=== PATIENT | female | born 1995 | race Caucasian/White ===

== ENCOUNTER 2016-12-27 08:28 | Emergency (ER) | payer MEDICAID ==
[~2016-12-27] VITALS: Ht 170.2 cm; Wt 58.2 kg
[~2016-12-27 08:28] MED LIST: birth control pills
[2016-12-27 08:30] VITALS: BP 103/69
[2016-12-27 08:55] LABS: HCG UR LOT HCG7030192
[2016-12-27 09:01] LABS: PATH.CAST-FLAG NOT PRESENT; SPERM-FLAG NOT PRESENT; SRC-FLAG NOT PRESENT; XTAL-FLAG NOT PRESENT; YLC-FLAG NOT PRESENT
[2016-12-27 09:05] LABS: HCG UR OBC PASS
== END 2016-12-27 09:25 | disposition home or self-care (01) ==
LOC: ED 09:15
DX: N39.0 Urinary tract infection, site not specified (principal); N30.00 Acute cystitis without hematuria; Z88.5 Allergy status to narcotic agent; Z91.040 Latex allergy status
CPT/HCPCS: 81001; 81025; 87077; 87086; 87186; 99284

== ENCOUNTER 2017-06-16 09:31 | Emergency (ER) | payer MEDICAID ==
[~2017-06-16] VITALS: Ht 170.2 cm; Wt 58.0 kg
[2017-06-16 09:32] VITALS: BP 115/81
== END 2017-06-16 11:43 | disposition home or self-care (01) ==
LOC: ED 11:00
DX: S92.351A Displaced fracture of fifth metatarsal bone, right foot, initial encounter for closed fracture (principal); W10.9XXA Fall (on) (from) unspecified stairs and steps, initial encounter; Y93.89 Activity, other specified; Y99.8 Other external cause status; Y92.009 Unspecified place in unspecified non-institutional (private) residence as the place of occurrence of the external cause
CPT/HCPCS: 29515; 99284

== ENCOUNTER 2018-11-08 09:50 | Emergency (ER) | payer MEDICAID ==
[~2018-11-08] VITALS: Ht 170.2 cm; Wt 57.0 kg
--- NOTE | 2018-11-08 10:16 | NUR ---
Patient to room gown on; on monitor; vss. Patient reports feeling ill x2 days. Recent trip to was informed she might have hantavirus. Patient reports being able to keep food and water down, but remains nauseaus. Awaiting orders.
[2018-11-08] MEDS ORDERED: KETOROLAC 30 MG/1 ML IM ONE (11:00)
--- NOTE | 2018-11-08 11:22 | NUR ---
RN to bedside; given clean catch instructions; patient verbalized understanding. Patient back to room ambulated well. UA sent. Awaiting results.
[2018-11-08 11:35] LABS: MEAN CORPUSCULAR HEMOGLOBIN 24.8 pg (27.0-34.8); MEAN CORPUSCULAR HGB CONC 31.7 g/dL (32.4-35.8); MEAN CORPUSCULAR VOLUME 78.1 fL (80-100); MEAN PLATELET VOLUME 8.3 fL (7.4-10.4); PLATELET COUNT 243 x10^3/uL (130-400); RED BLOOD COUNT 4.63 x10^6/uL (3.82-5.3); RED CELL DISTRIBUTION WIDTH 16.7 % (9.6-15.2)
[2018-11-08 11:45] LABS: MICROSCOPIC NOT IND
[2018-11-08] MEDS ORDERED: KETOROLAC 30 MG/1 ML ONE (11:46)
[2018-11-08 11:47] LABS: ALBUMIN 3.7 g/dL (3.4-5.0); ANION GAP 2 mmol/L (5-15); CALCIUM 8.2 mg/dL (8.5-10.1); CHLORIDE 107 mmol/L (98-107)
[2018-11-08 11:54] LABS: ALANINE AMINOTRANSFERASE 21 U/L (12-78); ALKALINE PHOSPHATASE 69 U/L (45-117); BILIRUBIN,TOTAL 0.3 mg/dL (0.2-1.0); CREATININE 0.77 mg/dL (0.55-1.02); TOTAL PROTEIN 7.2 g/dL (6.4-8.2)
[2018-11-08 11:56] LABS: CULTURE INDICATED? NO
--- NOTE | 2018-11-08 12:08 | NUR ---
RN to bedside; field technician at bedside already. Patient transported to imaging.
[2018-11-08 12:25] LABS: BASOPHILS # (AUTO) 0.02 x10^3/uL (0-0.1); BASOPHILS % (AUTO) 1 % (0-1); EOSINOPHILS # (AUTO) 0.07 x10^3/uL (0-0.4); EOSINOPHILS % (AUTO) 3 % (1-7); LYMPHOCYTES # (AUTO) 0.82 x10^3/uL (1-3.4); LYMPHOCYTES % (AUTO) 37 % (22-44); MD SCAN; MONOCYTES % (AUTO) 18 % (2-9); NEUTROPHILS # (AUTO) 0.89 x10^3/uL (1.8-6.8); NEUTROPHILS % (AUTO) 40 % (42-75)
--- NOTE | 2018-11-08 12:36 | NUR ---
RN to bedside; patient resting comfortably; adjust hob. Awaiting orders.
[2018-11-08 13:31] VITALS: BP 96/62
== END 2018-11-08 13:32 | disposition home or self-care (01) ==
LOC: ED 11:20
DX: B34.9 Viral infection, unspecified (principal); D72.819 Decreased white blood cell count, unspecified
CPT/HCPCS: 36415; 71046; 80053; 81003; 84703; 85025; 96372; 99284; J1885

== ENCOUNTER 2019-04-09 15:39 | Emergency (ER) | payer MEDICAID ==
[~2019-04-09] VITALS: Ht 172.7 cm; Wt 60.0 kg
--- NOTE | 2019-04-09 16:23 | NUR ---
PT REPORTS RIGHT HIP PAIN AND LOW BACK PAIN AFTER A GLF ON 03/27/2019. VS STABLE. PT SEEN BY DR MOSQUERA. NO ACUTE DISRESS NOTED. CALL LIGHT IN PLACE. WILL CONINUE TO MONITOR.
[2019-04-09] MEDS ORDERED: FENTANYL PF 100 MCG/2ML IVPush ONE (16:30)
[2019-04-09] MEDS ORDERED: DIAZEPAM 5 MG/ML, 2ML IV ONE (16:30)
[2019-04-09] MEDS ORDERED: KETOROLAC 30 MG/1 ML IVPush ONE (16:30)
[2019-04-09] MEDS ORDERED: KETOROLAC 30 MG/1 ML ONE (16:39)
[2019-04-09] MEDS ORDERED: DIAZEPAM 5 MG/ML, 2ML ONE (16:39)
[2019-04-09] MEDS ORDERED: FENTANYL PF 100 MCG/2ML ONE ×2 (16:39→17:50)
--- NOTE | 2019-04-09 17:03 | NUR ---
PT REFUSED PAIN MEDS AT THIS TIME. PT IS AT CT.
--- NOTE | 2019-04-09 17:52 | NUR ---
DR MOSQUERA IN ROOM. PT REQUESTING PAIN MEDS.
[2019-04-09 18:37] VITALS: BP 100/68
== END 2019-04-09 18:40 ==
LOC: ED 17:17
DX: M46.1 Sacroiliitis, not elsewhere classified (principal); M25.571 Pain in right ankle and joints of right foot; M25.551 Pain in right hip
CPT/HCPCS: 72131; 72192; 96374; 96375; 99284; J1885; J3010; J3360

== ENCOUNTER 2019-06-05 21:31 | Emergency (ER) | payer MEDICAID ==
[~2019-06-05] VITALS: Ht 172.7 cm; Wt 62.0 kg
--- NOTE | 2019-06-05 21:55 | NUR ---
[facility] ([facility] [place]) REQ UPDATES OR PICKUP: [phone]
[2019-06-05 22:29] LABS: RAPID INFLUENZA A Negative (Negative); RAPID INFLUENZA B Negative (Negative)
[2019-06-05 22:31] VITALS: BP 112/77
== END 2019-06-05 23:57 | disposition home or self-care (01) ==
LOC: ED 22:05
DX: B34.9 Viral infection, unspecified (principal); Z20.828 Contact with and (suspected) exposure to other viral communicable diseases; J15.9 Unspecified bacterial pneumonia
CPT/HCPCS: 71045; 87400; 99284

== ENCOUNTER 2020-01-09 13:00 | Emergency (ER) | payer MEDICAID ==
[~2020-01-09] VITALS: Ht 172.7 cm; Wt 63.5 kg
[2020-01-09 13:04] VITALS: BP 118/61
--- NOTE | 2020-01-09 13:08 | NUR ---
UA CUP GIVEN.
[2020-01-09 14:15] LABS: HCG UR SG 1.014 (1.003-1.030)
[2020-01-09 14:18] LABS: MICROSCOPIC INDICATED
== END 2020-01-09 15:45 | disposition home or self-care (01) ==
LOC: ED 13:49
DX: N30.00 Acute cystitis without hematuria (principal)
CPT/HCPCS: 81001; 81025; 87077; 87086; 87147; 87186; 99283

== ENCOUNTER 2020-10-12 10:34 | Emergency (ER) | payer SELFPAY ==
[~2020-10-12] VITALS: Ht 172.7 cm; Wt 60.2 kg
--- NOTE | 2020-10-12 10:44 | NUR ---
ABEL RN: PT TOOK 800MG IBUPROFEN THIS AM
[2020-10-12] MEDS ORDERED: METHOCARBAMOL 750 MG TABLET ONE (11:12)
[2020-10-12] MEDS ORDERED: HYDROmorphone 2 MG/ML, 1ML ONE ×2 (11:12→12:07)
[2020-10-12] MEDS: HYDROmorphone 2 MG/ML, 1ML IVPush PRN ×2 (11:16→12:10)
--- NOTE | 2020-10-12 11:22 | NUR ---
pt placed on continuous spo2 monitoring. pain has improved to a 4/10. awaiting mri.
[2020-10-12] MEDS ORDERED: METHOCARBAMOL 750 MG TABLET PO ONE (11:30)
--- NOTE | 2020-10-12 11:34 | NUR ---
PT IN MRI VIA [facility].
[2020-10-12] MEDS ORDERED: DEXAMETHASONE 4 MG/ML, 1ML ONE (12:06)
--- NOTE | 2020-10-12 12:09 | NUR ---
pt back from MRI, pain has increased to 9/10. made aware.
--- NOTE | 2020-10-12 12:21 | NUR ---
PT REPORTS RELIEF FROM PAIN MEDICATION. PAIN HAS SUBSIDED TO A 4/10.
[2020-10-12] MEDS ORDERED: HYDROmorphone 2 MG/ML, 1ML IVPush PRN (12:30)
[2020-10-12] MEDS ORDERED: DEXAMETHASONE 4 MG/ML, 1ML IVPush ONE (12:30)
--- NOTE | 2020-10-12 12:53 | NUR ---
PT AMBULATORY INDEPENDENT OF THIS RN. PT STOPS EVERY FEW STEPS DUE TO INCREASE IN PAIN. UPON RETURN TO ROOM, PT REQUEST ASSISTANCE WITH GETTING LEGS/FEET BACK INTO BED. THIS RN PROVIDED ASSISTANCE LIFTING LEGS INTO GURNEY. PT SHAKY, CRYING. NOTIFIED MD OF PT STATUS.
[2020-10-12 13:39] VITALS: BP 120/64
--- NOTE | 2020-10-12 13:40 | NUR ---
PT'S PAIN WELL MANAGED AT TIME OF DC, 06/18. AMBULATORY C STEADY/SLOW GAIT. WHEELED TO CHECKOUT FOR COMFORT. VSS. PT'S MOTHER TO DRIVE HER HOME.
== END 2020-10-12 13:41 | disposition home or self-care (01) ==
LOC: ED 11:54
DX: M54.16 Radiculopathy, lumbar region (principal)
CPT/HCPCS: 72148; 96374; 96375; 99284; J1100; J1170

== ENCOUNTER 2020-11-05 08:51 | Observation (INO) | payer MEDICAID ==
[~2020-11-05] VITALS: Ht 172.7 cm; Wt 62.0 kg
[2020-11-05] MEDS ORDERED: DIAZEPAM 5 MG TABLET ONE (10:29)
[2020-11-05] MEDS ORDERED: HYDROmorphone 2 MG/ML, 1ML ONE (10:29)
[2020-11-05] MEDS ORDERED: DIAZEPAM 5 MG TABLET PO ONE (10:30)
[2020-11-05] MEDS: HYDROmorphone 2 MG/ML, 1ML IVPush PRN ×2 (10:39→14:57)
[2020-11-05 10:52] LABS: MICROSCOPIC NOT IND
--- NOTE | 2020-11-05 11:23 | NUR ---
UP TO BR TO VOID ERP AWARE
[2020-11-05] MEDS ORDERED: KETOROLAC 30 MG/1 ML ONE (11:47)
[2020-11-05] MEDS ORDERED: KETOROLAC 30 MG/1 ML IVPush ONE (12:00)
--- NOTE | 2020-11-05 12:29 | NUR ---
MARYANNE RN: WENT TO DC PT, AND PATIENT AND MOTHER VERBALIZED THAT PT NEEDS TO STAY. "I CANT WALK, AND NO ONE IS LISTENING TO ME". SPOKE TO DR. SLADE WHO WILL ADMIT PT.
[2020-11-05 12:47] LABS: BASOPHILS % (AUTO) 1 % (0-1); EOSINOPHILS % (AUTO) 1 % (1-7); LYMPHOCYTES % (AUTO) 34 % (22-44); MEAN CORPUSCULAR HGB CONC 32.5 g/dL (32.4-35.8); MEAN PLATELET VOLUME 7.7 fL (7.4-10.4); MONOCYTES % (AUTO) 8 % (2-9); NEUTROPHILS % (AUTO) 56 % (42-75); PLATELET COUNT 228 x10^3/uL (130-400); RED BLOOD COUNT 4.29 x10^6/uL (3.82-5.3); RED CELL DISTRIBUTION WIDTH 17.6 % (9.6-15.2)
[2020-11-05] MEDS ORDERED: HYDROmorphone 2 MG/ML, 1ML IVPush PRN (13:00)
[2020-11-05] MEDS ORDERED: ACETAMINOPHEN 325 MG TABLET PO PRN (13:00)
[2020-11-05 13:02] LABS: ANION GAP 7 mmol/L (5-15); CALCIUM 8.6 mg/dL (8.5-10.1); CHLORIDE 108 mmol/L (98-107); CREATININE 0.56 mg/dL (0.55-1.02)
[2020-11-05 13:29] LABS: % IRON SATURATION 5 % (20-55); IRON LEVEL 21 mcg/dL (50-170); TOTAL IRON BINDING CAPACITY 437 mcg/dL (250-450)
[2020-11-05] MEDS ORDERED: DIAZEPAM 5 MG/ML, 10ML VIAL IV PRN (13:30)
[2020-11-05] MEDS: CYCLOBENZAPRINE 10 MG TABLET PO SCH ×2 (14:55→21:00)
[2020-11-05 15:14] VITALS: BP 111/68
[2020-11-05] MEDS: ONDANSETRON 2MG/ML, 2ML IVPush PRN (16:53)
[2020-11-05 19:22] VITALS: BP 103/51
[2020-11-05] MEDS: KETOROLAC 30 MG/1 ML IV PRN (20:05)
[2020-11-05] MEDS: METHOCARBAMOL 500 MG TABLET PO PRN (20:05)
[2020-11-06 04:02] VITALS: BP 116/51
[2020-11-06] MEDS: KETOROLAC 30 MG/1 ML IV PRN ×2 (04:12→11:23)
[2020-11-06] MEDS: METHOCARBAMOL 500 MG TABLET PO PRN (04:12)
[2020-11-06] MEDS: CYCLOBENZAPRINE 10 MG TABLET PO SCH (04:13)
[2020-11-06 06:40] VITALS: BP_SYST 109; BP_SYST 110; BP_DIAS 53; BP_DIAS 55
[2020-11-06] MEDS ORDERED: METH-639 PO (09:49)
[2020-11-06] MEDS ORDERED: CYCL10TA2 PO (09:49)
[2020-11-06] MEDS ORDERED: PRED20TA PO (09:49)
[2020-11-06] MEDS ORDERED: FERR-36 PO (09:49)
[2020-11-06] MEDS: ONDANSETRON 2MG/ML, 2ML IVPush PRN (11:24)
[2020-11-07] MEDS ORDERED: FERROUS SULFATE 325 MG TABLET PO SCH (09:00)
== END 2020-11-06 13:05 | disposition home or self-care (01) ==
LOC: ED 12:42 → INTOOBSV 13:02 → EDIP 13:02 → 4NW 14:36
PROVIDERS: ADMIT Hospitalist; ATTEND Hospitalist
DX: G89.29 Other chronic pain (principal); M54.5 Low back pain; D50.9 Iron deficiency anemia, unspecified; M51.36 Other intervertebral disc degeneration, lumbar region; Z91.040 Latex allergy status; Z79.899 Other long term (current) drug therapy
CPT/HCPCS: 36415; 72110; 80048; 81003; 83540; 83550; 85025; 96374; 96375; 96376; 99284; G0378; J1170; J1885; J2405; J7512; 99285